=== PATIENT | male | born 1995 | race Hispanic/Latino ===

== ENCOUNTER 2024-09-10 18:04 | Emergency (ER) | payer OTHER ==
[~2024-09-10] VITALS: Ht 172.7 cm; Wt 69.9 kg
[2024-09-10 20:21] LABS: HIV 1&2 SCREEN NEGATIVE (NEGATIVE)
[2024-09-10 20:33] LABS: Trichomonas vaginalis (AMP) NOT DETECTED (NEGATIVE)
[2024-09-10 20:56] LABS: GC DNA AMPLIFICATION NEGATIVE (NEGATIVE)
[2024-09-10 21:10] VITALS: BP 115/69; TEMP 98.8; O2SAT 98
== END 2024-09-10 21:09 | disposition home or self-care (01) ==
LOC: M ED 18:04
DX: A63.0 Anogenital (venereal) warts (principal); Z11.3 Encounter for screening for infections with a predominantly sexual mode of transmission